=== PATIENT | male | born 2000 | race Two or more races ===

== ENCOUNTER 2020-10-19 14:26 | Emergency (ER) | payer SELFPAY ==
[~2020-10-19] VITALS: Ht 165.1 cm; Wt 72.6 kg
[2020-10-19] MEDS ORDERED: IBUPROFEN 600 MG TABLET PO ONE ×2 (15:00→15:15)
[2020-10-19] MEDS ORDERED: IBUPROFEN 600 MG TABLET ONE (15:05)
[2020-10-19 15:10] VITALS: BP 124/89
== END 2020-10-19 15:14 | disposition home or self-care (01) ==
LOC: ER 14:32
DX: S09.90XA Unspecified injury of head, initial encounter (principal); V49.49XA Driver injured in collision with other motor vehicles in traffic accident, initial encounter; R51.9 Headache, unspecified; Y92.410 Unspecified street and highway as the place of occurrence of the external cause; R40.2412 Glasgow coma scale score 13-15, at arrival to emergency department
CPT/HCPCS: A4663